=== PATIENT | male | born 1990 | race Hispanic/Latino ===

== ENCOUNTER → 2019-03-20 | Outpatient (CLI) | payer OTHER, SELFPAY ==
[2019-03-20 08:25] LABS: MEAN CELL HGB 30.6 pg (26-34); MEAN CELL HGB CONCENTRATION 34.7 g/dL (33-37); MEAN CORP VOLUME 88.1 fL (78-100); MEAN PLATELET VOLUME 9.9 fL (7.8-11.0); WHITE BLOOD CELL 7.8 10^3/uL (4.5-11.0)
[2019-03-20 08:32] LABS: ALANINE AMINOTRANSFERASE(ML) 26 U/L (12-78); ALKALINE PHOSPHATASE 121 U/L (50-136); ASPARTATE AMINO TRANSFERASE 20 U/L (0-35); CARBON DIOXIDE 25.2 mmol/L (20.0-32); CHOLESTEROL 219 mg/dL (120-240); GLUCOSE 94 mg/dL (70-110); HDL CHOLESTEROL 37 mg/dL (32-96)
[2019-03-20 09:01] LABS: BILIRUBIN,URINE NEGATIVE (NEGATIVE); UROBILINOGEN,URINE NORMAL (NEGATIVE)
[2019-03-20 09:03] LABS: APPEARANCE,URINE CLEAR (CLEAR); UA COLOR YELLOW (YELLOW)
== END | disposition home or self-care (01) ==
LOC: EDSTATUS 03-19 11:42 → LAB 03-19 12:35
DX: Z02.1 Encounter for pre-employment examination (principal)
CPT/HCPCS: 36415; 80053; 80061; 81002; 82977; 83036; 83540; 85027